=== PATIENT | male | born 1950 | race Caucasian/White ===

== ENCOUNTER → 2017-01-07 | Outpatient (CLI) | payer OTHER ==
[2016-04-25 08:27] VITALS: BP 110/65
[~2017-01-07] MED LIST: APIX5TAB PO; ASCO500C PO; ASPI-630 PO; ASPI325T11 PO; ATOR40TA PO; CAPT12.52 PO; DILT360C2 PO; DRON400T PO; ESOM40CA PO; INSU100I13 SQ; LISI-334 PO; LUTE20CA4 PO; MAGN71.5 PO; METF-620 PO; OXYC-327 PO; RANI150T6 PO; RANO10002 PO; VITA400C6 PO
[2017-01-07 13:52] LABS: BASO % 0 % (0-3); EOS % 5 % (0-3); HEMATOCRIT 42.7 % (39.0-53.0); HEMOGLOBIN 14.3 g/dL (13.0-17.5); LYMPH # 1.2 x10^3/uL (1.0-4.8); LYMPH % 27 % (24-48); MEAN CORPUSCULAR HEMOGLOBIN 30 pg (25-35); MEAN CORPUSCULAR HGB CONC 34 g/dL (31-37); MEAN CORPUSCULAR VOLUME 90 fL (79-100); MONO % 14 % (0-9); NEUT % 54 % (31-73); PLATELET COUNT 144 x10^3/uL (140-400); RED BLOOD COUNT 4.76 x10^6/uL (4.30-5.70); RED CELL DISTRIBUTION WIDTH 15.3 % (11.5-14.5); WHITE BLOOD COUNT 4.5 x10^3/uL (4.0-11.0)
[2017-01-07 13:59] LABS: GFR 75.2; POTASSIUM 4.3 mmol/L (3.5-5.1)
[2017-01-07 14:03] LABS: INR 1.3 (0.8-1.1); PROTHROMBIN TIME PATIENT 15.4 SEC (11.7-14.0)
[2017-01-07 14:31] LABS: BILIRUBIN,URINE NEGATIVE (NEG); GLUCOSE,URINE NEGATIVE (NEG); NITRITE,URINE NEGATIVE (NEG); PH,URINE 5.5; PROTEIN,URINE NEGATIVE (NEG-TRACE); UROBILINOGEN,URINE 0.2 mg/dL (0.2 mg/dL)
[2017-01-07 14:50] LABS: BACTERIA,URINE 0 /HPF (0-FEW); RBC,URINE 0 /HPF (0-2); SQUAMOUS EPITHELIAL CELL,UR FEW /LPF; WBC,URINE 0 /HPF (0-4)
== END | disposition home or self-care (01) ==
LOC: SURGPAT 13:07
PROVIDERS: ATTEND Orthopaedic Surgery
DX: M19.011 Primary osteoarthritis, right shoulder (principal); Z96.611 Presence of right artificial shoulder joint
CPT/HCPCS: 36415; 80048; 81001; 82040; 83036; 85027; 85610; 85651; 85730; 87086; 87641

== ENCOUNTER 2017-01-14 05:40 | Inpatient (IN) | payer OTHER ==
[~2017-01-14] VITALS: Ht 172.7 cm; Wt 104.3 kg
[2017-01-14] VITALS (8 sets, daily range): BP systolic 110–133; BP diastolic 64–78
[2017-01-14] MEDS: IV RINGERS,LACTATED 1000ML 1,000 ML IV SCH ×2 (03:38→06:54)
[~2017-01-14 05:40] MED LIST changes: -ASPI325T11 PO; +HYDROmorphone 2 MG/ML VIAL IV PRN; +LIDOCAINE 1% 1 ML SYRINGE. ID PRN; +MEPERIDINE PF 25 MG/ML VIAL. IV PRN; +MIDAZOLAM HCL/PF 2 MG/2 ML VIAL. IV PRN; +MORPHINE SULFATE 4 MG/ML DISP.SYRIN. IV PRN; +PROCHLORPERAZINE 10 MG/2 ML VIAL. IV PRN; +diphenhydrAMINE 50 MG/ML VIAL IV PRN; +fentaNYL PF VIAL 100 MCG/2 ML VIAL IV PRN
[2017-01-14] MEDS ORDERED: TRANEXAMIC ACID 1,000 MG in IV NS 50ML -- 1ST BAG INJ ONE (06:00)
[2017-01-14] MEDS ORDERED: MORPHINE SULFATE 5 MG, KETOROLAC TROMETHAMINE 30 MG, ROPIVacaine 0.5% PF 60 ML, EPINEPH... INT ART ONE ×5 (06:00)
[2017-01-14] MEDS ORDERED: CELECOXIB 200 MG CAPSULE. PO PRN (06:00)
[2017-01-14] MEDS ORDERED: BACITRACIN 50,000 UNIT in IV NORMAL SALINE 1000ML BAG 1,000 ML IRR ONE (06:00)
[2017-01-14] MEDS ORDERED: HYDROcodone/APAP 7.5/325MG 1 TAB TABLET PO PRN (06:00)
[2017-01-14] MEDS ORDERED: BUPIVACAINE MPF 0.5% 30 ML VIAL. ONE (07:05)
[2017-01-14] MEDS ORDERED: fentaNYL PF VIAL 100 MCG/2 ML VIAL ONE (07:07)
[2017-01-14] MEDS ORDERED: MIDAZOLAM HCL/PF 2 MG/2 ML VIAL. ONE (07:07)
[2017-01-14] MEDS ORDERED: ROCURONIUM 50 MG/5 ML VIAL. ONE (07:07)
[2017-01-14] MEDS ORDERED: LIDOCAINE 2% PF Vial for OR 5 ML VIAL. ONE (07:09)
[2017-01-14] MEDS ORDERED: PROPOFOL 20 ML IV ONE (07:09)
[2017-01-14] MEDS ORDERED: DEXAMETHASONE SOD PHOS 20 MG/5 ML VIAL. ONE (07:09)
[2017-01-14] MEDS ORDERED: ONDANSETRON PF 4 MG/2 ML VIAL. ONE (07:09)
[2017-01-14] MEDS ORDERED: FAMOTIDINE 20 MG/2 ML VIAL ONE (07:09)
[2017-01-14] MEDS ORDERED: ePHEDrine PF IN SALINE 50 MG/5 ML DISP.SYRIN IV ONE (08:00)
[2017-01-14] MEDS ORDERED: TRANEXAMIC ACID 1,000 MG in IV NS 50ML -- 2ND BAG INJ ONE (08:00)
[2017-01-14] MEDS ORDERED: 0.9 % SODIUM CHLORIDE 50 ML VIAL. IJ ONE (08:18)
[2017-01-14] MEDS ORDERED: VASOPRESSIN 20 UNIT/ML VIAL. ONE (08:18)
[2017-01-14] MEDS ORDERED: SEVOFLURANE > 120 MINUTES. IH ONE (09:37)
[2017-01-14] MEDS ORDERED: NEOSTIGMINE METHYLSULFATE 5 MG/5 ML SYRINGE. ONE (09:49)
[2017-01-14] MEDS ORDERED: GLYCOPYRROLATE 1 MG/5 ML VIAL. ONE (09:49)
[2017-01-14] MEDS ORDERED: HYDROcodone/APAP 10/325 1 TAB TABLET PO PRN (10:15)
[2017-01-14] MEDS ORDERED: oxyCODONE/APAP 7.5/325 1 TAB TABLET PO PRN (10:15)
[2017-01-14] MEDS ORDERED: ZOLPIDEM 5 MG TABLET. PO PRN (10:15)
[2017-01-14] MEDS ORDERED: oxyCODONE/APAP 5/325 1 TAB TABLET PO PRN (10:15)
[2017-01-14] MEDS ORDERED: HYDROmorphone 2 MG/ML VIAL IV PRN (10:15)
[2017-01-14] MEDS ORDERED: PROCHLORPERAZINE 5 MG TABLET. PO PRN (10:15)
[2017-01-14] MEDS ORDERED: traMADol 50 MG TABLET PO PRN ×2 (10:15)
[2017-01-14] MEDS ORDERED: DEXTROSE 50% 25 GM / 50ML DISP.SYRIN. IV PRN (10:15)
[2017-01-14] MEDS ORDERED: CALCIUM CARBONATE 500 MG TAB.CHEW PO PRN (10:15)
[2017-01-14] MEDS ORDERED: ACETAMINOPHEN 325 MG TABLET. PO PRN (10:15)
[2017-01-14] MEDS ORDERED: 0.9 % SODIUM CHLORIDE 10 ML DISP.SYRIN. IV PRN (10:15)
--- NOTE | 2017-01-14 10:15 | PDOC ---
BRIEF OPERATIVE NOTE Date: Jan 14, 2017 Pre-Op Diagnosis right rotator cuff arthropathy Post-Op Diagnosis same Procedure Performed right reverse total shoulder arthroplasty Surgeon Amando Line Director Valarie Anesthesiologist Miko Anesthesia Type: General, Regional Blood Loss 75cc Specimens Obtained humeral head to path Findings above Complications none KELSIE BILLY MD Jan 14, 2017 10:15
--- NOTE | 2017-01-14 10:57 | RAD ---
Indication: Right shoulder replacement surgery. Time of exam 10:48 AM 2 views of the right shoulder demonstrate postop changes of reverse shoulder arthroplasty. The prosthetic elements appear in good position. No fracture or loosening is identified. Impression: Satisfactory postop appearance to the right shoulder.
[2017-01-14] MEDS: IV DEXTROSE 5 %-0.45 % NACL 1,000 ML IV SCH ×2 (16:43→23:00)
[2017-01-14] MEDS: FERROUS SULFATE 325 MG TABLET. PO SCH (16:48)
[2017-01-14] MEDS: ATORVASTATIN CALCIUM 40 MG TABLET. PO SCH (21:26)
[2017-01-14] MEDS: ASPIRIN ENTERIC COATED 325 MG TABLET.DR. PO SCH (21:26)
[2017-01-14] MEDS: RANOLAZINE 500 MG TAB.ER.12H PO SCH (21:30)
[2017-01-14] MEDS: APIXABAN 5 MG TABLET. PO SCH (21:32)
[2017-01-14] MEDS: CELECOXIB 200 MG CAPSULE. PO SCH (21:32)
[2017-01-14] MEDS: FAMOTIDINE 20 MG TABLET. PO SCH (21:34)
[2017-01-14] MEDS: INSULIN DETEMIR 300 UNITS/3 ML INSULN.PEN. SQ SCH (21:36)
[2017-01-14] MEDS: DRONEDARONE HCL 400 MG TABLET PO SCH (21:54)
[2017-01-15 02:18] VITALS: BP 148/80
[2017-01-15] MEDS ORDERED: MAGNESIUM HYDROXIDE 2,400 MG/30 ML ORAL.SUSP. PO PRN (06:00)
[2017-01-15 06:45] VITALS: BP 139/76
[2017-01-15] MEDS: CELECOXIB 200 MG CAPSULE. PO SCH ×2 (08:18→21:08)
[2017-01-15] MEDS: FAMOTIDINE 20 MG TABLET. PO SCH ×2 (08:19→21:11)
[2017-01-15] MEDS: MULTIVITAMIN with MINERAL TABLET. PO SCH (08:19)
[2017-01-15] MEDS: FERROUS SULFATE 325 MG TABLET. PO SCH ×2 (08:19→17:05)
[2017-01-15] MEDS: ASPIRIN ENTERIC COATED 325 MG TABLET.DR. PO SCH ×2 (08:19→21:08)
[2017-01-15] MEDS: SENNOSIDES/DOCUSATE 8.6/50MG TABLET. PO SCH (08:19)
[2017-01-15] MEDS: LISINOPRIL 20 MG TABLET PO SCH (08:23)
[2017-01-15] MEDS: RANOLAZINE 500 MG TAB.ER.12H PO SCH ×2 (08:24→21:11)
[2017-01-15] MEDS: DRONEDARONE HCL 400 MG TABLET PO SCH ×2 (08:24→21:11)
[2017-01-15] MEDS: APIXABAN 5 MG TABLET. PO SCH ×2 (08:25→21:12)
[2017-01-15] MEDS: IV DEXTROSE 5 %-0.45 % NACL 1,000 ML IV SCH ×2 (08:28→19:00)
[2017-01-15] MEDS ORDERED: ASPIRIN CHEWABLE 81 MG TABLET. PO SCH (09:00)
[2017-01-15 09:53] LABS: HEMOGLOBIN 13.3 g/dL (13.0-17.5)
--- NOTE | 2017-01-15 13:40 | PDOC ---
PROGRESS NOTES Subjective Subjective Problems overnight: Minimal shoulder pain did well with physical therapy complains of ongoing numbness in the index finger and some weakness in wrist extension Objective Vital Signs Vital Signs Date Time Temp Pulse Resp B/P (MAP) Pulse Ox O2 Delivery O2 Flow Rate FiO2 01/15/17 11:35 01/15/17 08:24 60 01/15/17 08:00 Room Air 01/15/17 06:45 97.9 20 96 97.9 01/14/17 15:00 2.0 Physical Exam Can extend wrist against gravity but really not against further stress. Motor intact in terms of finger and thumb extension sensory decreased in superficial radial nerve sensation axillary median musculocutaneous all intact Labs Laboratory Tests Test 01/14/17 06:42 01/14/17 10:36 01/14/17 16:44 01/14/17 21:26 Glucose (Fingerstick) 117 mg/dL (70-99) 138 mg/dL (70-99) 150 mg/dL (70-99) 206 mg/dL (70-99) Test 01/15/17 06:26 01/15/17 09:00 01/15/17 11:22 Glucose (Fingerstick) 150 mg/dL (70-99) 162 mg/dL (70-99) Hemoglobin 13.3 g/dL (13.0-17.5) Hematocrit 39.0 % (39.0-53.0) Mean Corpuscular Hemoglobin Concent 34 g/dL (31-37) Laboratory Tests Test 01/14/17 16:44 01/14/17 21:26 01/15/17 06:26 01/15/17 09:00 Glucose (Fingerstick) 150 mg/dL (70-99) 206 mg/dL (70-99) 150 mg/dL (70-99) Hemoglobin 13.3 g/dL (13.0-17.5) Hematocrit 39.0 % (39.0-53.0) Mean Corpuscular Hemoglobin Concent 34 g/dL (31-37) Test 01/15/17 11:22 Glucose (Fingerstick) 162 mg/dL (70-99) Imaging Postop x-rays show excellent position of her reversed total shoulder arthroplasty Assessment Assessment POD# [1], S/P [right reverse total shoulder arthroplasty] Problems: Plan Plan of Care Continue physical therapy reverse total shoulder arthroplasty protocol I told him generally that this type of sensation deficit can be from pressure on the nerve most likely due to swelling the rest of the motor is weak but otherwise intact and therefore a good prognosis for recovery sometimes could take several days or even a couple of weeks to resolve completely depending on the nature of things will observe that closely no other restrictions on his activity aside from the typical reverse total shoulder arthroplasty precautions Plan home with outpatient physical therapy when stable likely tomorrow KELSIE BILLY MD Jan 15, 2017 13:40
[2017-01-15] MEDS ORDERED: BISACODYL 10 MG SUPP.RECT. PR PRN (16:00)
[2017-01-15 17:59] VITALS: BP 134/76
[2017-01-15] MEDS: HYDROcodone/APAP 7.5/325MG 1 TAB TABLET PO PRN (18:23)
[2017-01-15] MEDS: ATORVASTATIN CALCIUM 40 MG TABLET. PO SCH (21:11)
[2017-01-15] MEDS: INSULIN DETEMIR 300 UNITS/3 ML INSULN.PEN. SQ SCH (21:18)
[2017-01-16] MEDS: HYDROcodone/APAP 7.5/325MG 1 TAB TABLET PO PRN ×2 (06:31→12:33)
[2017-01-16 06:41] VITALS: BP 118/68
[2017-01-16] MEDS: FAMOTIDINE 20 MG TABLET. PO SCH (08:38)
[2017-01-16] MEDS: DRONEDARONE HCL 400 MG TABLET PO SCH (08:38)
[2017-01-16] MEDS: ASPIRIN ENTERIC COATED 325 MG TABLET.DR. PO SCH (08:38)
[2017-01-16] MEDS: CELECOXIB 200 MG CAPSULE. PO SCH (08:38)
[2017-01-16] MEDS: FERROUS SULFATE 325 MG TABLET. PO SCH (08:38)
[2017-01-16] MEDS: APIXABAN 5 MG TABLET. PO SCH (08:38)
[2017-01-16 08:39] VITALS: BP 118/68
[2017-01-16] MEDS: SENNOSIDES/DOCUSATE 8.6/50MG TABLET. PO SCH (08:39)
[2017-01-16] MEDS: RANOLAZINE 500 MG TAB.ER.12H PO SCH (08:39)
[2017-01-16] MEDS: MULTIVITAMIN with MINERAL TABLET. PO SCH (08:39)
[2017-01-16] MEDS: LISINOPRIL 20 MG TABLET PO SCH (08:39)
[2017-01-16 10:18] LABS: HEMATOCRIT 39.1 % (39.0-53.0); HEMOGLOBIN 13.4 g/dL (13.0-17.5)
--- NOTE | 2017-01-16 11:12 | PDOC ---
ORTHO PROGRESS NOTES Subjective Patient is doing well today, pain is controlled. He now has full feeling and function of his forearm and hand. Plans to go home today. No concerns Post-op Day: 2 (Right reverse total shoulder) Vitals Vital Signs Date Time Temp Pulse Resp B/P (MAP) Pulse Ox O2 Delivery O2 Flow Rate FiO2 01/16/17 08:39 62 118/68 01/16/17 07:47 Room Air 01/16/17 06:41 97.6 18 96 97.6 Labs Laboratory Tests Test 01/14/17 16:44 01/14/17 21:26 01/15/17 06:26 01/15/17 09:00 Glucose (Fingerstick) 150 mg/dL (70-99) 206 mg/dL (70-99) 150 mg/dL (70-99) Hemoglobin 13.3 g/dL (13.0-17.5) Hematocrit 39.0 % (39.0-53.0) Mean Corpuscular Hemoglobin Concent 34 g/dL (31-37) Test 01/15/17 11:22 01/15/17 16:29 01/15/17 20:54 01/16/17 10:10 Glucose (Fingerstick) 162 mg/dL (70-99) 121 mg/dL (70-99) 111 mg/dL (70-99) Hemoglobin 13.4 g/dL (13.0-17.5) Hematocrit 39.1 % (39.0-53.0) Mean Corpuscular Hemoglobin Concent 34 g/dL (31-37) Laboratory Tests Test 01/15/17 11:22 01/15/17 16:29 01/15/17 20:54 01/16/17 10:10 Glucose (Fingerstick) 162 mg/dL (70-99) 121 mg/dL (70-99) 111 mg/dL (70-99) Hemoglobin 13.4 g/dL (13.0-17.5) Hematocrit 39.1 % (39.0-53.0) Mean Corpuscular Hemoglobin Concent 34 g/dL (31-37) Notes Patient is awake and alert sitting up in bed. Breathing unlabored, no acute distress. Neurovascular intact right upper extremity. Incision covered with dressing, intact Problems: (1) Rotator cuff tear arthropathy of right shoulder Assessment and Plan DC home today Pain med rx written Follow up two weeks JHONATHAN MILLS APRN Jan 16, 2017 11:12
[2017-01-16] MEDS ORDERED: ASPI325T11 PO (13:36)
--- NOTE | 2017-01-16 17:18 | PATHOLOGY ---
PATHOLOGY REPORT * * * * * * * * FINAL DIAGNOSIS: Humeral head, right reverse shoulder arthroplasty: - Slight degenerative changes of articular surface. (JPM/db; 01/16/2017) REPORT ELECTRONICALLY SIGNED BY: Scott Stover M.D. DATE/TIME: 01/16/2017 17:17 * * * * * * * * GROSS PATHOLOGY: Received in formalin labeled "Amarilys Craig right shoulder bone tissue," is a dome-shaped fragment of bone measuring 5.2 x 4.8 x 1.5 cm in greatest dimensions. The articular surface is pale thomas and granular displaying no evidence of focal eburnation. Sectioning the bone reveals yellow-thomas cut surfaces. [employer] tissue is submitted in cassette A1, following decalcification. (KAH; 01/15/2017) INITIAL CPT CODE(S): A; 32507, 75477 Professional services [place] [facility] [place] [address] Technical services performed by [facility] at [address] [place] [address], [address], [place] [address]. Eloisa Elise, fax: SPECIMEN(S) RECEIVED: A.Right shoulder bone and tissue CLINICAL HISTORY: Right rotator cuff repair, DJD right shoulder PATIENT: AMARILYS CRAIG /AGE: 310/10/1950 (Age: 66) PATIENT #: [id number] ALT CASE #: SPECIMEN COLLECTION DATE: 01/14/2017 SPECIMEN RECEIVED DATE: 01/14/2017 [facility] - [address] [place] [address] - PHONE: [phone] * * * END OF REPORT * * *
--- NOTE | 2017-02-09 15:49 | HP ---
ADMIT DATE: 01/14/2017 PREOPERATIVE HISTORY AND PHYSICAL CHIEF COMPLAINT: Right shoulder pain. HISTORY OF PRESENT ILLNESS: The patient is well known to me from a right total knee arthroplasty, rehabbed well, who was actually initially seen for right shoulder pain that is many, many years in duration, progressively getting worse and was actually scheduled for surgery for his right shoulder previously, but then he became suddenly worse, he decided that was a higher priority at that time and shoulder continues to give him increased pain, difficulty attempting to reach way from his side, really cannot even raise at to level of the shoulder, has significant pain on any attempt at extremes of range of motion, lying on the shoulder at night, lifting away from his body, or attempting to lift overhead, which is impossible and he was having significant pain and limitations of his daily activities as a result. PAST MEDICAL HISTORY: Significant for diabetes, some heart problems with rhythm disorder, hypertension, hyperlipidemia, reflux disease. PAST SURGICAL HISTORY: Significant for right total knee injection, right Achilles repair, pacemaker implant, kidney cyst, back surgery, hiatal hernia surgery, tonsillectomy. FAMILY HISTORY: Denies any significant family history. SOCIAL HISTORY: He is accompanied by his . Denies smoking, occasional alcohol, no drug use. 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 MEDICATIONS: List is reviewed. ALLERGIES: He has no known drug allergies. PHYSICAL EXAMINATION: VITAL SIGNS: Per his admission sheet. HEENT: Atraumatic, normocephalic. HEART: Regular rate and rhythm. LUNGS: Clear to auscultation bilaterally. ABDOMEN: Benign. EXTREMITIES: Examination of the right shoulder reveals pseudoparalysis, significant weakness of the rotator cuff. No apprehension or instability. Active range of motion is limited to about 60-70 degrees of elevation and abduction. Normal parascapular motion present. Rotator cuff appears deficient and resisted abduction, external rotation, internal rotation strength relatively normal. There is normal examination of the contralateral shoulder, bilateral elbows and wrists with intact motor function, distal pulses, sensation, reflexes in skin in both upper extremities throughout. IMAGING: X-rays of the shoulder show moderate degenerative change. IMPRESSION: Right shoulder pain, longstanding in nature. Degenerative joint disease of right shoulder, right shoulder rotator cuff tear, arthropathy, and history of right total knee replacement. TREATMENT PLAN: I had gone over with him additional nonoperative measures, possibility of treatment of his shoulder, certainly suspicious of rotator cuff deficiency based on his examination, but with his degenerative change and pseudoparalysis, I talked to him about possibility of reverse shoulder arthroplasty as a more definitive solution to compensate for poorly functioning rotator cuff, particularly given that he has had this problem so longstanding in nature. I am concerned about the possibility of an irreparable rotator cuff because of the rotator cuff arthropathy findings. We had talked about risks, benefits, postoperative course including possibility of nerve or blood vessel damage, continued pain, instability, premature wear or loosening, and infection among others. All his questions were answered. Consent was obtained and he agrees to proceed with operative evaluation and treatment, which will occur today with [facility] admission to follow. KELSIE BILLY MD DR: ALINA/dyllan JOB#: [id number] / [id number] MANUELA Sherman
--- NOTE | 2017-02-10 12:48 | OP ---
DATE OF SURGERY: 01/14/2017 PREOPERATIVE DIAGNOSIS: Right rotator cuff arthropathy. POSTOPERATIVE DIAGNOSIS: Right rotator cuff arthropathy. PROCEDURE: Right reverse total shoulder arthroplasty. SURGEON: Maykel Goel M.D. ANESTHESIA: General. ESTIMATED BLOOD LOSS: 150 mL. COMPLICATIONS: None. OPERATIVE INDICATIONS: The patient is a 66-year-old male with longstanding shoulder pain and rotator cuff arthropathy with operative indications further delineated in his history and physical dated today. I had gone over with him in addition to operative treatment options, additional nonoperative treatment and the risks, benefits, and postoperative course including the possibility of infection, nerve or blood vessel damage, medical or other anesthetic complications, premature wear or loosening, instability, and stiffness among others. All his questions were answered, consent was obtained and he agrees to proceed with operative evaluation and treatment. OPERATIVE TECHNIQUE: The patient was identified, procedure verified, and the patient placed in the supine position on the operating table. After adequate amounts of general endotracheal anesthesia and a preexisting interscalene block were obtained, he was placed in the T-max whiting in semi-beach chair position, apposition with the spider arm whiting, and the right arm was prepped and draped in the standard sterile fashion. After timeout was performed, the patient and procedure were identified and verified. A deltopectoral approach was carried out. Cephalic vein was taken laterally. It was retracted. He was noted to have significant retracted tear of the supraspinatus. Subscapularis was released as well as the upper part of the pectoralis for exposure. The deltoid insertion distally was released bluntly with the finger. Biceps tenodesis was carried out. The shoulder was externally rotated to expose. Drilling was carried out to locate the center of the humeral head and reaming carried out up to a size 12 with the reamer, which was then left in. The cutting guide cut at approximately 15 degrees of retroversion to correspond fairly closely with this anatomy and in accordance with the trabecular metal reverse shoulder cutting guide. Reaming was then carried out and a 12-mm trial humeral stem was placed. The glenoid was then exposed. A capsular release was performed. A guide was placed for reaming low central in the glenoid and reaming carried out down to a good bleeding bone. Remainder of the superior bone was curetted away to allow placement of the glenoid baseplate and the sclerotic bone superiorly was drilled to get better ingrowth. Next, a standard 15-mm post-length baseplate was tapped in place and transfixed with screws to the base of the coracoid and down the scapular within the scapular spine. Excellent fixation was noted. A 36-mm glenosphere was tapped in place to engage its Hernandez taper and trialing was carried out with the +3 and +6 standard liner. A +6 was noted to have the best stability, yet still retaining full range of motion. A trabecular metal nonforce 12-mm diameter stem, 130-mm stem length was then placed in proper version after removal of the previous trial components and the 36-mm polyethylene liner was placed and tapped in place to ensure it locked. The shoulder was reduced, taken through a full range of motion, and excellent stability was noted. Thorough irrigation was carried out with normal saline solution. Subscapularis was repaired as well as the upper portion of the pectoralis. Fascia was closed at the deltopectoral interval, subcutaneous closure with buried Vicryl suture, and skin closure with Monocryl. Steri-Strips and Mastisol sterile dressings were applied. The patient was returned to recovery room in stable condition, having tolerated the procedure well. MAYKEL GOEL MD DR: ALINA/dyllan JOB#: [id number] / [id number] MANUELA Sherman
== END 2017-01-16 14:07 | disposition home or self-care (01) | DRG 483 ==
LOC: OPSVCIP 05:40 → 4 SOUTHEST 11:29
PROVIDERS: ADMIT Orthopaedic Surgery; ATTEND Orthopaedic Surgery
PROC: 5A09357 Assistance with Respiratory Ventilation, Less than 24 Consecutive Hours, Continuous Positive Airway Pressure (ICD-10-PCS; 2017-01-14)
PROC: 0RRJ00Z Replacement of Right Shoulder Joint with Reverse Ball and Socket Synthetic Substitute, Open Approach (ICD-10-PCS; principal; 2017-01-14 07:30)
DX: M75.101 Unspecified rotator cuff tear or rupture of right shoulder, not specified as traumatic (principal); M19.011 Primary osteoarthritis, right shoulder; Z79.899 Other long term (current) drug therapy
CPT/HCPCS: 36415; 73030; 82962; 85014; 85018; 86850; 86900; 86901; 88304; 88311; J0171; J0690; J1100; J1815; J1885; J2001; J2250; J2270; J2405; J2704; J2710; J2795; J3010; J3490; J7030; J7120; S0028; 97530; 97535; C1769

== ENCOUNTER → 2019-06-04 | Day surgery (SDC) | payer MEDICARE, OTHER ==
[~2019-06-04] VITALS: Ht 167.6 cm; Wt 106.0 kg
[~2019-06-04] MED LIST changes: +ACETAMINOPHEN 500 MG TABLET PO ONE; +ASPI325T11 PO; +BUPIVACAINE-EPI 0.25%-1:200000 MPF 30 ML VIAL. INJ ONE; +CELE200C PO; +DEXAMETHASONE SOD PHOS 4 MG/ML VIAL ONE; +FAMOTIDINE 20 MG/2 ML VIAL ONE; +FLUT9.9S NS; +GABA300C18 PO; +GLYCOPYRROLATE 1 MG/5 ML VIAL. ONE; +INSULIN LISPRO 100 UNIT/ML 3ML VIAL for OP,RR ONLY. SQ PRN; +IV RINGERS,LACTATED 1000ML 1,000 ML IV SCH; +KETOROLAC 30 MG/ML VIAL. ONE; -LIDOCAINE 1% 1 ML SYRINGE. ID PRN; +LIDOCAINE 2% PF 5 ML VIAL. ONE; +MAGN400T5 PO; -MEPERIDINE PF 25 MG/ML VIAL. IV PRN; -METF-620 PO; +METF10007 PO; -MIDAZOLAM HCL/PF 2 MG/2 ML VIAL. IV PRN; +MORPHINE SULFATE 2 MG/ML VIAL. IV PRN; -MORPHINE SULFATE 4 MG/ML DISP.SYRIN. IV PRN; +NEOSTIGMINE METHYLSULFATE 5 MG/5 ML SYRINGE. ONE; +ONDANSETRON PF 4 MG/2 ML VIAL. ONE; -OXYC-327 PO; +OXYC1TAB19 PO; +PHENYLEPHRINE 10 MG/ML VIAL. ONE; +PROPOFOL 20 ML IV ONE; +RANI-376 PO; -RANI150T6 PO; +ROCURONIUM 50 MG/5 ML VIAL. ONE; +SEVOFLURANE 61 TO 120 MINUTES. IH ONE; +SUCCINYLCHOLINE 200 MG/10 ML VIAL. ONE; -diphenhydrAMINE 50 MG/ML VIAL IV PRN; +ePHEDrine PF IN SALINE 50 MG/10 ML SYRINGE. IV ONE; +fentaNYL PF VIAL 100 MCG/2 ML VIAL ONE
[2019-06-04 07:32] LABS: CALCIUM 8.6 mg/dL (8.5-10.1); CREATININE 1.1 mg/dL (0.7-1.3); POTASSIUM 4.6 mmol/L (3.5-5.1)
[2019-06-04 07:33] LABS: MAGNESIUM 1.6 mg/dL (1.8-2.4)
--- NOTE | 2019-06-04 07:53 | PDOC1 ---
History and Physical Date of Admission Date of Admission DATE: 06/04/19 TIME: 07:47 Identification/Chief Complaint Chief Complaint Right groin pain Source Source: Patient History of Present Illness History of Present Illness 68-year-old male is complained of right groin pain for several years over the last couple months is becoming much worse pain is generally constant especially worse after activity or lifting he denies any nausea vomiting fevers or chills Past Medical History Cardiovascular: CAD, HTN Pulmonary: No pertinent hx GI: GERD Heme/Onc: No pertinent hx Hepatobiliary: No pertinent hx Psych: No pertinent hx Rheumatologic: No pertinent hx Infectious disease: No pertinent hx ENT: No pertinent hx Renal/: No pertinent hx Endocrine: Diabetes Dermatology: No pertinent hx Past Surgical History Past Surgical History: Pacemaker, Tonsillectomy, Other (right shoulder surgery right Achilles tendon surgery right knee surgery lower lumbar spine surgery) Family History Family History: Alzheimer's Disease Social History Smoke: No ALCOHOL: none Drugs: None Current Medications Current Medications Current Medications Bupivacaine HCl/ Epinephrine Bitart (Sensorcaine-Epi 0.25%-1:733771 Mpf) 30 ml 1X ONCE INJ ; Start 06/04/19 at 06:30; Stop 06/04/19 at 06:32; Status DC Fentanyl Citrate (Fentanyl 2ml Vial) 25 mcg PRN Q5MIN PRN IV MILD PAIN 1-3; Start 06/04/19 at 07:00; Stop 06/05/19 at 06:59 Fentanyl Citrate (Fentanyl 2ml Vial) 50 mcg PRN Q5MIN PRN IV MODERATE TO SEVERE PAIN; Start 06/04/19 at 07:00; Stop 06/05/19 at 06:59 Morphine Sulfate (Morphine Sulfate) 1 mg PRN Q10MIN PRN IV SEVERE PAIN 7-10; Start 06/04/19 at 07:00; Stop 06/05/19 at 06:59 Ringer's Solution 1,000 ml @ 30 mls/hr Q24H IV Last administered on 06/04/19at 07:21; Start 06/04/19 at 07:00; Stop 06/04/19 at 18:59 Hydromorphone HCl (Dilaudid) 0.5 mg PRN Q10MIN PRN IV SEV PAIN, Second choice; Start 06/04/19 at 07:00; Stop 06/05/19 at 06:59 Prochlorperazine Edisylate (Compazine) 5 mg PACU PRN PRN IV NAUSEA, MRX1; Start 06/04/19 at 07:00; Stop 06/05/19 at 06:59 Cefazolin Sodium/ Dextrose 50 ml @ 100 mls/hr 1X PREOP PRN IV PRIOR TO PROCEDURE; Start 06/04/19 at 06:00; Stop 06/04/19 at 18:00 Insulin Human Lispro (HumaLOG VIAL for OP,RR ONLY) 0-10 units PRN Q1HR PRN SQ PER PROTOCOL Last administered on 06/04/19at 07:23; Start 06/04/19 at 07:15; Stop 06/05/19 at 07:14 Acetaminophen (Tylenol) 500 mg STK-MED ONCE PO ; Start 06/04/19 at 07:10; Stop 06/04/19 at 07:11; Status DC Lidocaine HCl (Lidocaine Pf 2% Vial) 5 ml STK-MED ONCE .ROUTE ; Start 06/04/19 at 07:14; Stop 06/04/19 at 07:14; Status DC Propofol 20 ml @ As Directed STK-MED ONCE IV ; Start 06/04/19 at 07:14; Stop 06/04/19 at 07:14; Status DC Ondansetron HCl (Zofran) 4 mg STK-MED ONCE .ROUTE ; Start 06/04/19 at 07:14; Stop 06/04/19 at 07:14; Status DC Dexamethasone Sodium Phosphate (Decadron) 4 mg STK-MED ONCE .ROUTE ; Start 06/04/19 at 07:14; Stop 06/04/19 at 07:14; Status DC Rocuronium [place] (Zemuron) 50 mg STK-MED ONCE .ROUTE ; Start 06/04/19 at 07:14; Stop 06/04/19 at 07:14; Status DC Famotidine (Pepcid Vial) 20 mg STK-MED ONCE .ROUTE ; Start 06/04/19 at 07:19; Stop 06/04/19 at 07:19; Status DC Acetaminophen (Tylenol) 1,000 mg 1X ONCE PO Last administered on 06/04/19at 07:26; Start 06/04/19 at 07:30; Stop 06/04/19 at 07:31; Status DC Active Scripts Active Reported Flonase Allergy Relief (Fluticasone Propionate) 9.9 Ml [place].susp 2 Sprays NS PRN PRN Magnesium Oxide 400 Mg Tablet 600 Mg PO BID Lisinopril 20 Mg Tablet 30 Mg PO DAILY Zantac (Ranitidine Hcl) 150 Mg Tablet 150 Mg PO BID Vitamin E (Vitamin E (Dl,Tocopheryl Acet)) 400 Unit Capsule 400 Unit PO DAILY Vitamin C (Ascorbic Acid) 500 Mg Capsule.er 500 Mg PO DAILY Lutein 20 Mg Capsule 20 Mg PO DAILY Multaq (Dronedarone Hcl) 400 Mg Tablet 1 Tab PO BID Diltiazem Xt (Diltiazem Hcl) 360 Mg Capsule.er 360 Mg PO DAILYWSUP Eliquis (Apixaban) 5 Mg Tablet 5 Mg PO BID Lipitor (Atorvastatin Calcium) 40 Mg Tablet 40 Mg PO HS Lantus Solostar (Insulin Glargine,Hum.rec.anlog) 100 Unit/1 Ml Insuln.pen 70 Un it SQ QHS Metformin Hcl 1,000 Mg Tablet 1 Tab PO BID Ranexa (Ranolazine) 1,000 Mg Tab.er.12h 1 Tab PO BID Allergies Allergies: Coded Allergies: No Known Drug Allergies (Unverified , 06/04/19) ROS Genitourinary: YES Pain (right groin) Physical Exam General: Alert, Oriented X3, Cooperative, No acute distress, Other (obese) HEENT: Atraumatic, PERRLA, EOMI Lungs: Clear to auscultation, Normal air movement Heart: RRR, no murmurs Abdomen: Normal bowel sounds, Soft, No tenderness Male Genitals Exam: hernia (right inguinal) Rectal Exam: not examined Extremities: No edema Skin: No significant lesion Neuro: Normal speech Vitals Vitals Vital Signs Date Time Temp Pulse Resp B/P (MAP) Pulse Ox O2 Delivery O2 Flow Rate FiO2 06/04/19 07:00 97.6 63 20 97 97.6 06/04/19 06:40 124/66 Room Air Labs Labs Laboratory Tests Test 06/04/19 07:05 Sodium Level 141 mmol/L (136-145) Potassium Level 4.6 mmol/L (3.5-5.1) Chloride Level 102 mmol/L (98-107) Carbon Dioxide Level 25 mmol/L (21-32) Anion Gap 14 (6-14) Blood Urea Nitrogen 15 mg/dL (8-26) Creatinine 1.1 mg/dL (0.7-1.3) Estimated GFR (Cockcroft-Gault) 67.0 Glucose Level 115 mg/dL (70-99) Glucose (Fingerstick) 106 mg/dL (70-99) Calcium Level 8.6 mg/dL (8.5-10.1) Magnesium Level 1.6 mg/dL (1.8-2.4) Laboratory Tests Test 06/04/19 07:05 Sodium Level 141 mmol/L (136-145) Potassium Level 4.6 mmol/L (3.5-5.1) Chloride Level 102 mmol/L (98-107) Carbon Dioxide Level 25 mmol/L (21-32) Anion Gap 14 (6-14) Blood Urea Nitrogen 15 mg/dL (8-26) Creatinine 1.1 mg/dL (0.7-1.3) Estimated GFR (Cockcroft-Gault) 67.0 Glucose Level 115 mg/dL (70-99) Glucose (Fingerstick) 106 mg/dL (70-99) Calcium Level 8.6 mg/dL (8.5-10.1) Magnesium Level 1.6 mg/dL (1.8-2.4) VTE Prophylaxis Ordered VTE Prophylaxis Devices: Yes VTE Pharmacological Prophylaxi: Contraindicated Assessment/Plan Assessment/Plan Inguinal hernia plan robotic-assisted laparoscopic inguinal hernia repair with mesh ELLIE BA MD Jun 04, 2019 07:53
--- NOTE | 2019-06-04 09:12 | PDOC4 ---
Operative Note Operative Note Date: 06/04/2019 Preoperative diagnosis: Right inguinal hernia Postoperative diagnosis: Same Procedure: Robotic-assisted laparoscopic right inguinal hernia repair with mesh Surgeon: Destin Specimen: None Dictation: Patient is a 68-year-old male who is had right sided groin pain for a couple of years has noticed a bulge in this area pain is been getting worse over the last several months. Procedure of robotic-assisted laparoscopic inguinal hernia repair with mesh was explained to the patient in detail risks benefits were also discussed including bleeding infection injury to intra-abdominal contents possibly necessitating further or open operations alternatives to this procedure also discussed with the patient who seemed to understand and gave both verbal and written consent to have the procedure performed. Patient was taken to the operating room placed in the supine position general anesthesia was initiated once patient was sleep and intubated his placed in low lithotomy positioning and his abdomen was prepped and draped usual sterile fashion using ChloraPrep. An area just above the umbilicus was injected with quarter percent Marcaine with epinephrine incision was made 11 blade scalpel and a Veress needle was placed within the abdomen creating pneumoperitoneum once this was complete 8mm da Nish port was placed and the da Nish camera was placed within the abdomen which was inspected no other abdomen maladies were noted other than a right inguinal hernia. 8mm da Nish port was placed in the left mid abdomen and one in the right mid abdomen that eventually robot was brought in and docked all port sites surgeon went to the robotic console using grasper and Endo Alicia scissors the peritoneum on the right side was incised and a inferior flap was propagated with blunt and sharp dissection reducing the hernia contents. A large 3-D max Bard mesh for the right side was placed and the peritoneum was closed over the mesh with a running 20V lock suture. Pneumoperitoneum was reduced all ports removed the port sites were all closed for septic or Monocryl Mastisol Steri-Strips and island dressings were applied. Patient was awakened and bated operating room taken to recovery in stable condition all sponge instrument n eedle counts listed as correct estimated blood loss 5 mL ELLIE BA MD Jun 04, 2019 09:12
--- NOTE | 2019-06-04 09:16 | DISCH ---
DISCHARGE INSTRUCTIONS Condition on Discharge Condition on Discharge: Stable Activity After Discharge Activity Instructions for Disc: Avoid exertion Other activity instructions: no lifting more than 20 pounds for 2 weeks Diet after Discharge Diet after Discharge: Diabetic No Calorie Level Checks after Discharge DC Comment: May shower in 24 hours Contacting the DRJavan after DC Call your doctor for: If your condition worsens Follow-Up Follow up with: Dr. Ba in 2 weeks ELLIE BA MD Jun 04, 2019 09:16
[2019-06-04 09:45] VITALS: BP 105/63
== END ==
LOC: SURG 06:19
PROVIDERS: ATTEND Surgery
DX: K40.90 Unilateral inguinal hernia, without obstruction or gangrene, not specified as recurrent (principal); I25.10 Atherosclerotic heart disease of native coronary artery without angina pectoris; I10 Essential (primary) hypertension; K21.9 Gastro-esophageal reflux disease without esophagitis; E11.9 Type 2 diabetes mellitus without complications; Z79.84 Long term (current) use of oral hypoglycemic drugs; Z79.899 Other long term (current) drug therapy; Z95.0 Presence of cardiac pacemaker; Z98.890 Other specified postprocedural states
CPT/HCPCS: 36415; 49650; 80048; 82962; 83735; A7015; C1781; J0171; J0330; J1100; J1885; J2001; J2405; J2704; J2710; J3010; J3490

== ENCOUNTER → 2020-05-12 | Outpatient (CLI) | payer MEDICARE, OTHER ==
[2019-06-04 09:45] VITALS: BP 105/63
[~2020-05-12] MED LIST changes: -ACETAMINOPHEN 500 MG TABLET PO ONE; -BUPIVACAINE-EPI 0.25%-1:200000 MPF 30 ML VIAL. INJ ONE; -DEXAMETHASONE SOD PHOS 4 MG/ML VIAL ONE; +DILT360C28 PO; +FAMO40TA57 PO; -FAMOTIDINE 20 MG/2 ML VIAL ONE; -GLYCOPYRROLATE 1 MG/5 ML VIAL. ONE; -HYDROmorphone 2 MG/ML VIAL IV PRN; -INSULIN LISPRO 100 UNIT/ML 3ML VIAL for OP,RR ONLY. SQ PRN; -IV RINGERS,LACTATED 1000ML 1,000 ML IV SCH; -KETOROLAC 30 MG/ML VIAL. ONE; -LIDOCAINE 2% PF 5 ML VIAL. ONE; -MORPHINE SULFATE 2 MG/ML VIAL. IV PRN; -NEOSTIGMINE METHYLSULFATE 5 MG/5 ML SYRINGE. ONE; +NITR0.4T22 SL; -ONDANSETRON PF 4 MG/2 ML VIAL. ONE; -PHENYLEPHRINE 10 MG/ML VIAL. ONE; -PROCHLORPERAZINE 10 MG/2 ML VIAL. IV PRN; -PROPOFOL 20 ML IV ONE; -ROCURONIUM 50 MG/5 ML VIAL. ONE; -SEVOFLURANE 61 TO 120 MINUTES. IH ONE; -SUCCINYLCHOLINE 200 MG/10 ML VIAL. ONE; -ePHEDrine PF IN SALINE 50 MG/10 ML SYRINGE. IV ONE; -fentaNYL PF VIAL 100 MCG/2 ML VIAL IV PRN; -fentaNYL PF VIAL 100 MCG/2 ML VIAL ONE
--- NOTE | 2020-05-12 12:32 | PDOC1 ---
INITIAL PAIN CONSULT DATE OF SERVICE: DOS: DATE: 05/12/20 TIME: 12:23 CHIEF COMPLAINT: Chief Complaint: Low back and right lower extremity pain HISTORY OF PRESENT ILLNESS: 69-year-old male presents with history of pain for many years starting 1976 after active training with multiple injuries over the years with pain culminating in a lumbar laminectomy 2007 which was helpful for a few years but the pain is returning now to fairly significant over the past year to year and a half in the low back and the right lower extremity significantly across the low back at right lower bilateral thigh anterior thigh medial thigh medial lower leg medial ankle to the foot but not into the toes on the right side patient reports some pain on the left mostly on the right as well as in the low back and some in the posterior upper shoulders as well again more on the right than the left. Patient reports the pain in the back and leg is constant sharp throbbing shooting radiating with tingling pain numbness and tingling specially below the knee intermittent in intensity but always present changes during the day worse with walking standing changing positions also some burning and aching in the back itself patient reports it wakes him from sleep least once or twice a night does not affect his bowel bladder control but does affect his ability to walk is not using any assistive devices to ambulate but does have some significant f atigability of the right lower extremity with ambulation. Patient reports that his walk at least 3-4 times a week 2 to 4 miles depending on how he feels and some days he can only go very short since his other days he can go full 4 miles but takes multiple rests. Patient has had epidural injections prior to his surgery in the past which were helpful physical therapy as well in the last 2 to 3 years and does exercise daily as well as walking few times a week. Patient takes Tylenol which does ease the pain but only by about 20 to 30% patient rates his disability rating 0-10 10 being the worst is a 6 with family home responsibilities recreation occupation activity 5 with social activity and sexual behavior 0 self-care life support activities. Patient did have a CT scan of the lumbar spine showing minimal facet degenerative change L3-4 with bilateral foraminal disc bulging resulting in minimal narrowing L4-5 shows left foraminal disc bulge as well as right foraminal disc bulging with crowding of the exiting right L4 nerve root within the right neural foramen with no focal disc herniation or central stenosis L5-S1 shows no significant central canal stenosis but left foraminal disc osteophyte formation with moderate to marked narrowing of the inferior portion of the left neural foramen and no significant right foraminal narrowing. PAST MEDICAL HISTORY: PMH: Type 2 diabetes, hypertension, irregular heartbeat, atrial fibrillation, dizziness, arthritis, sleep apnea, hearing loss PREVIOUS SURGERIES: Past Surgical Hx: Right inguinal hernia repair 2018, right shoulder replacement 2017, right knee replacement 2015, pacemaker placement 2013, right knee scope 1976 1977 2011, lumbar laminectomy 2007, tonsillectomy 1961, fundoplication 1999 CURRENT MEDICATIONS: Current Meds: Active Scripts Medications Dose Route/Sig Max Daily Dose Days Date Category Dose Instructions NITROGLYCERIN SubLingual (Nitroglycerin) 0.4 Mg Tab.subl 1 Tab SL UD 05/12/20 Reported 1st sign of attack; may repeat every 5 mins; if pain persists after 3 in 15 min, medical attention is recommended Taztia Xt (Diltiazem Hcl) 360 Mg Capsule.er 1 Cap PO DAILY 30 05/12/20 Reported Pepcid (Famotidine) 40 Mg Tablet 40 Mg PO HS 05/12/20 Reported Flonase Allergy Relief (Fluticasone Propionate) 9.9 Ml [place].susp 2 Sprays NS PRN PRN 06/02/19 Reported Magnesium Oxide 400 Mg Tablet 600 Mg PO BID 06/02/19 Reported Lisinopril 20 Mg Tablet 30 Mg PO DAILY 01/07/17 Reported Vitamin E (Vitamin E (Dl,Tocopheryl Acet)) 400 Unit Capsule 400 Unit PO DAILY 04/03/16 Reported Vitamin C (Ascorbic Acid) 500 Mg Capsule.er 500 Mg PO DAILY 04/03/16 Reported Lutein 20 Mg Capsule 20 Mg PO DAILY 04/03/16 Reported Multaq (Dronedarone Hcl) 400 Mg Tablet 1 Tab PO BID 04/03/16 Reported Diltiazem Xt (Diltiazem Hcl) 360 Mg Capsule.er 360 Mg PO DAILYWSUP 04/03/16 Reported Eliquis (Apixaban) 5 Mg Tablet 5 Mg PO BID 04/03/16 Reported Lipitor (Atorvastatin Calcium) 40 Mg Tablet 40 Mg PO HS 04/03/16 Reported Lantus Solostar (Insulin Glargine,Hum.rec.anlog) 100 Unit/1 Ml Insuln.pen 70 Unit SQ QHS 04/03/16 Reported Metformin Hcl 1,000 Mg Tablet 1 Tab PO BID 04/03/16 Reported Ranexa (Ranolazine) 1,000 Mg Tab.er.12h 1 Tab PO BID 04/03/16 Reported ALLERGIES; Allergies: Coded Allergies: No Known Drug Allergies (Unverified , 06/04/19) FAMILY HISTORY: Family Hx: Significant for heart disease SOCIAL HISTORY: Social Hx: Drinks alcohol maybe once a week, does not smoke not use any illegal illicit or recreational drugs is lives with his spouse locally in [facility] and is currently retired REVIEW OF SYSTEMS: ROS: Positive for those items mentioned in history of present illness, all systems are reviewed, otherwise negative, is complete full and well-documented on patient's chart. PHYSICAL EXAM: VS: Blood pressure is 150/81 pulse 64 respirations 18 temperature 98.8 F height is 5 foot 8 inches weight is 225 pounds PE: PHYSICAL EXAMINATION: GENERAL: The patient is awake, alert, oriented, appropriate, very pleasant demeanor HEENT: Shows normocephalic, atraumatic. Extraocular movements are intact and symmetrical. Oral cavity: Mucous membranes moist and pink. Dentition is intact. NECK: Shows anterior throat supple without palpable lymphadenopathy noted. Swallow reflex symmetrical. CHEST: Shows normal on inspection, with pacemaker and well-healed surgical scarring. Breath sounds are clear bilaterally, no rales rhonchi or wheezes auscultated. HEART: Shows S1, S2 clear. No murmurs auscultated. ABDOMEN: Soft, nontender, nondistended, obese. No palpable organomegaly is noted. No rebound or guarding demonstrated. BACK: Shows spine grossly in the midline. Normal-appearing cervical lordotic curvature. There is slightly increased thoracic kyphosis, some minor flattening of the lumbar lordotic curvature with well-healed midline surgical scar. Lumbar paraspinous muscles show symmetrical on inspection, on palpation shows some moderate tenderness diffusely throughout the upper, middle and lower distribution of the paraspinous muscles bilaterally and also into the lower thoracic paraspinous musculature, firm and tender, but without specific trigger points, without radiation of pain. The patient has good rotational motion of the lumbar spine, both laterally as well as extension and flexion without significant difficulty. Mild tenderness over the sacroiliac regions but without radiation, no tenderness over the over the spinous processes, or sacrum. EXTREMITIES: Lower extremities show deep tendon reflexes 1+ in the patellar and tendo calcaneus tendons. Motor exam is 4 on a scale of 5 with right dorsiflexion, extension, quadriceps and hamstring flexion and 5/5 on the left. Peripheral pulses are 1 posterior tibial. No peripheral edema is noted bilaterally. Lower extremities are warm and dry to touch, equal in color and appearance with well-healed surgical scar over the right knee. Straight leg raise noted to be positive on the right about 35 degrees, left side is negative. Gaenslen's and Jimenez's maneuvers are negative as well. The patient is able to stand, stand on his toes but loses balance with putting all of his weight on his right foot walks with a slight favoring gait does appear to favor the right lower extremity moderately but not use any assistive device such as canes or walkers to ambulate. SKIN: Shows warm and dry, good turgor. No edema. No sores, rashes or bruising throughout. IMPRESSION: Impression: 69-year-old male with long history low back and right lower extremity pain in a radicular fashion worse over the past [address] scan lumbar spine as noted Type 2 diabetes Hypertension Atrial fibrillation with anticoagulation therapy Arthritis Plan: Options were discussed with the patient including conservative medical management physical therapies interventional techniques effects interventional techniques. We discussed a lumbar epidural steroid injection using description as well as anatomical models to describe the procedure. 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 If deemed safe and appropriate will have him hold this and return for lumbar epidural steroid injection at that time. In the meantime patient will continue with stretching strength exercises and exercise and walking as tolerated. FAISAL PAZ MD May 12, 2020 12:32
== END ==
LOC: PNCL 10:45 → MERGE 11:00
PROVIDERS: ATTEND Anesthesiology
DX: M54.5 Low back pain (principal); M79.604 Pain in right leg; I10 Essential (primary) hypertension; E11.9 Type 2 diabetes mellitus without complications; G47.30 Sleep apnea, unspecified; I48.91 Unspecified atrial fibrillation; M19.90 Unspecified osteoarthritis, unspecified site; Z98.890 Other specified postprocedural states; Z96.611 Presence of right artificial shoulder joint; Z79.01 Long term (current) use of anticoagulants; Z79.899 Other long term (current) drug therapy; Z79.84 Long term (current) use of oral hypoglycemic drugs
CPT/HCPCS: G0463

== ENCOUNTER → 2020-06-13 | Outpatient (CLI) | payer MEDICARE, OTHER ==
[2019-06-04 09:45] VITALS: BP 105/63
[~2020-06-13] MED LIST changes: +IOHEXOL 180 MG/ML 10 ML VIAL. ONE; +methylPREDNISolone ACETATE 40 MG/ML VIAL. ONE; +methylPREDNISolone ACETATE 80 MG/ML VIAL. ONE
--- NOTE | 2020-06-13 08:53 | PDOC ---
Progress Note - Pain Clinic Date of Service: DOS: DATE: 06/13/20 TIME: 08:50 Diagnosis: Dx: Lumbar radiculopathy with lumbar degenerative disc disease and lumbar postlaminectomy syndrome History or Present Illness: HPI: 69-year-old male returns for follow-up status post initial evaluation and clearance to hold his Eliquis for 3 days has been off of this now for 3 days returned significant pain low back and right lower extremity as it was previously. Patient reports no new motor or sensory deficits no new bowel bladder incontinence or other complaints describes pain as aching and sharp shooting in the back and burning in the lower extremity mostly in the anterior lateral thigh and posterior thigh on the right side patient reports it is an 8 on scale 10 is worse over the past week 6 on average for this least and is a 6 today. Patient reports no new motor or sensory deficits no bowel bladder incontinence or other complaints. Patient reports still waking her from sleep about 1 once every 6-7 hours worse again with walking standing changing positions. Physical Exam: VS: Blood pressure is 118/67 pulse 63 respirations 20 temperature 98.4 F weight is 221 pounds PE: PHYSICAL EXAMINATION: GENERAL: The patient is awake, alert, oriented, appropriate, very pleasant demeanor HEENT: Shows normocephalic, atraumatic. Extraocular movements are intact and sy mmetrical. Oral cavity: Mucous membranes moist and pink. NECK: Shows anterior throat supple without palpable lymphadenopathy noted. CHEST: Shows normal on inspection. Breath sounds are clear bilaterally. HEART: Shows S1, S2 clear. No murmurs auscultated. ABDOMEN: Soft, nontender, nondistended, obese. No palpable organomegaly is noted. No rebound or guarding demonstrated. BACK: Shows spine grossly in the midline. Normal-appearing cervical lordotic curvature. There is slightly increased thoracic kyphosis, some minor flattening of the lumbar lordotic curvature. Lumbar paraspinous muscles show symmetrical on inspection, on palpation shows some moderate tenderness diffusely throughout the upper, middle and lower distribution of the paraspinous muscles, but without specific trigger points, without radiation of pain. The patient has good rotational motion of the lumbar spine, both laterally as well as extension and flexion without significant difficulty. No tenderness over the spinous processes, sacrum or sacroiliac regions. EXTREMITIES: Lower extremities show deep tendon reflexes 1+ in the patellar and tendo calcaneus tendons. Motor exam is 4 on a scale of 5 with right dorsiflexion, extension, quadriceps and hamstring flexion and 5/5 on the left. Peripheral pulses are 1+ posterior tibial. No peripheral edema is noted bilaterally. Lower extremities are warm and dry to touch, equal in color and appearance. SKIN: Shows warm and dry, good turgor. No edema. Procedure: Procedure: Options were discussed with the patient. Patient chart was reviewed his current medication regimen updated current review of systems updated today as well. We will proceed with a first in the series lumbar epidural steroid injection today with fluoroscopic guidance. Risks were discussed including but not limited to: Bleeding, infection, possibility of epidural hematoma and subsequent neurological compromise, dural puncture, headaches, spinal cord and/or nerve damage, side effects of steroid medication, and poor results regarding pain control. Patient understands wished to proceed. Patient return to clinic in approximate 2 weeks for follow-up was counseled as to return appointment activity level and side effects to be aware of. Medication Injected: Med Injected: Procedure is lumbar epidural steroid injection under local anesthetic using colin rile prep and drape at the L4-5 level using C-arm fluoroscopic guidance in both AP and lateral views medications injected is 120 mg Depo-Medrol + 10 mL preservative-free normal saline and 2 mL contrast- condition at discharge is stable patient tolerated procedure well had no complications. Condition at Discharge: Condition at Discharge: Condition at discharge stable, patient tolerated procedure well had no complications. FAISAL PAZ MD Jun 13, 2020 08:53
== END | disposition home or self-care (01) ==
LOC: PNCL 08:12
PROVIDERS: ATTEND Anesthesiology
DX: M51.16 Intervertebral disc disorders with radiculopathy, lumbar region (principal); M96.1 Postlaminectomy syndrome, not elsewhere classified; I25.10 Atherosclerotic heart disease of native coronary artery without angina pectoris; E78.00 Pure hypercholesterolemia, unspecified; I48.91 Unspecified atrial fibrillation; I10 Essential (primary) hypertension; E11.9 Type 2 diabetes mellitus without complications; K21.9 Gastro-esophageal reflux disease without esophagitis; E66.9 Obesity, unspecified; G47.30 Sleep apnea, unspecified; Z79.899 Other long term (current) drug therapy; Z98.890 Other specified postprocedural states; Z82.49 Family history of ischemic heart disease and other diseases of the circulatory system; Z83.3 Family history of diabetes mellitus; Z79.84 Long term (current) use of oral hypoglycemic drugs; Z72.89 Other problems related to lifestyle
CPT/HCPCS: 62323; J1030; J1040; Q9965

== ENCOUNTER → 2020-06-27 | Outpatient (CLI) | payer MEDICARE, OTHER ==
[2019-06-04 09:45] VITALS: BP 105/63
--- NOTE | 2020-06-27 10:02 | PDOC ---
Progress Note - Pain Clinic Date of Service: DOS: DATE: 06/27/20 TIME: 10:00 Diagnosis: Dx: Lumbar radiculopathy with lumbar degenerative disease and lumbar postlaminectomy syndrome History or Present Illness: HPI: 69-year-old male returns follow-up status post lumbar epidural steroid action x1. Patient reports about 75% improvement in the low back and primarily right lower extremity pain patient ports still there but much improved. Patient reports currently the pain is still reduced by 75% he is an increased distance walking with greater ease able to do household activities greater ease and comfort travel with greater ease and sleeping well at night does not awaken from sleep. Patient rates his pain as a 5 on a scale of 10 is worse over the past week for an average 3 this least is a 4 today. Patient reports no new motor or sensory deficits no new bowel or bladder incontinence or other complaints. Physical Exam: VS: Blood pressure is 126/73 pulse 62 respirations 16 temperature is 90.1 F weight is 221 pounds PE: PHYSICAL EXAMINATION: GENERAL: The patient is awake, alert, oriented, appropriate, very pleasant demeanor HEENT: Shows normocephalic, atraumatic. Extraocular movements are intact and symmetrical. NECK: Shows anterior throat supple without palpable lymphadenopathy noted. Swallow reflex symmetrical. CHEST: Shows normal on inspection. Breath sounds are clear bilaterally. HEART: Shows S1, S2 clear. No murmurs auscultated. ABDOMEN: Soft, nontender, nondistended, obese. No palpable organomegaly is noted. No rebound or guarding demonstrated. BACK: Shows spine grossly in the midline. Normal-appearing cervical lordotic curvature. There is slightly increased thoracic kyphosis, some minor flattening of the lumbar lordotic curvature. Lumbar paraspinous muscles show symmetrical on inspection, on palpation shows some moderate tenderness diffusely throughout the upper, middle and lower distribution of the paraspinous muscles bilaterally, but without specific trigger points, without radiation of pain. The patient has good rotational motion of the lumbar spine, both laterally as well as extension and flexion without significant difficulty. No tenderness over the spinous processes, sacrum or sacroiliac regions. EXTREMITIES: Lower extremities show deep tendon reflexes 1+ in the patellar and tendo calcaneus tendons. Motor exam is 4 on a scale of 5 with right dorsiflexion, extension, quadriceps and hamstring flexion and 5/5 on the left. Peripheral pulses are 1+ posterior tibial. No peripheral edema is noted bilaterally. Lower extremities are warm and dry to touch, equal in color and appearance. SKIN: Shows warm and dry, good turgor. No edema. No sores, rashes or bruising throughout. Procedure: Procedure: Options were discussed with the patient. Patient chart reviewed his current medication regimen updated current review of systems updated today as well. We will proceed with a second in a series lumbar epidural straight injection today with fluoroscopic guidance. Risks were discussed including but not limited to: Bleeding, infection, possibility of epidural hematoma and subsequent neurological compromise, dural puncture, headaches, spinal cord and/or nerve damage, side effects of steroid medication, and poor results regarding pain control. Patient understands wished to proceed. [facility] will [facility] 2 [facility] for follow-up with [facility] return appointment activity level and side effects to be aware of. Medication Injected: Med Injected: Procedure is lumbar epidural steroid injection under local anesthetic using sterile prep and drape at the L5-S1 level using C-arm fluoroscopic guidance in both AP and lateral views medications injected is 120 mg Depo-Medrol + 10 mL preservative-free normal saline and 2 mL contrast- condition at discharge is stable patient tolerated procedure well had no complications. Condition at Discharge: Condition at Discharge: Condition at discharge stable, patient tolerated procedure well and had no complications. FAISAL PAZ MD Jun 27, 2020 10:02
== END | disposition home or self-care (01) ==
LOC: PNCL 09:09
PROVIDERS: ATTEND Anesthesiology
DX: M51.16 Intervertebral disc disorders with radiculopathy, lumbar region (principal); M96.1 Postlaminectomy syndrome, not elsewhere classified; I25.10 Atherosclerotic heart disease of native coronary artery without angina pectoris; I10 Essential (primary) hypertension; E78.00 Pure hypercholesterolemia, unspecified; I48.91 Unspecified atrial fibrillation; K21.9 Gastro-esophageal reflux disease without esophagitis; E66.9 Obesity, unspecified; G47.30 Sleep apnea, unspecified; M19.90 Unspecified osteoarthritis, unspecified site; Z79.4 Long term (current) use of insulin; Z79.899 Other long term (current) drug therapy; Z98.890 Other specified postprocedural states; Z72.89 Other problems related to lifestyle; Z82.49 Family history of ischemic heart disease and other diseases of the circulatory system; Z83.3 Family history of diabetes mellitus
CPT/HCPCS: 62323; J1030; J1040; Q9965